=== PATIENT | female | born 1980 | race Asian ===

== ENCOUNTER 2021-06-16 14:17 | Inpatient (IN) | payer OTHER ==
[~2021-06-16] VITALS: Ht 157.5 cm; Wt 45.1 kg
[2021-06-16] MEDS ORDERED: ACETAMINOPHEN 325MG TABLET PO STA (15:29)
[2021-06-16 15:40] LABS: CLARITY URINE CLEAR (CLEAR); COLOR URINE YELLOW (YELLOW); KETONES URINE NEGATIVE (NEGATIVE); LEUKOCYTE ESTERASE URINE NEGATIVE (NEGATIVE); NITRITE URINE NEGATIVE (NEGATIVE); OCCULT BLOOD URINE 1+ (NEGATIVE); PH URINE 5.5 (4.5-8.0); PROTEIN URINE NEGATIVE (NEGATIVE); SPECIFIC GRAVITY URINE 1.013 (1.005-1.030); UROBILINOGEN URINE 0.2 E.U./dL (0.2-1.0)
[2021-06-16 15:44] LABS: BASOPHILS % 0.2 % (0.0-2.0); EOSINOPHILS % 0.6 % (0.0-5.0); HEMATOCRIT. 38.6 % (36.0-48.0); HEMOGLOBIN. 13.2 g/dL (12.0-16.0); LYMPHOCYTES % 11.7 % (20.0-50.0); MEAN CORPUSCULAR HEMOGLOBIN 29.4 pg (28.0-32.0); MEAN CORPUSCULAR VOLUME 85.8 fL (81.0-99.0); MEAN PLATELET VOLUME 8.1 fl (7.4-10.4); MONOCYTES % 6.6 % (2.0-8.0); NEUTROPHILS % 80.9 % (40.0-76.0); PLATELET 174 x1000/uL (130-400)
[2021-06-16 15:56] LABS: CHLORIDE 105 mEq/L (98-107)
[2021-06-16] MEDS ORDERED: ONDANSETRON HCL 4MG/2ML INJ IV STA (17:27)
[2021-06-16] MEDS ORDERED: MORPHINE SULFATE 4 MG/ML CPJ (NOT FOR IM USE) IV STA (17:27)
[2021-06-16] MEDS ORDERED: SODIUM CHLORIDE 0.9% 1,000 ML IV ONE (17:30)
[2021-06-16] MEDS ORDERED: PIPERACILLIN/TAZ 3.375G PREMIX 50 ML IV ONE (17:30)
[2021-06-17] VITALS: BP 101/72
[2021-06-17 01:13] VITALS: BP 101/72
[2021-06-17] MEDS ORDERED: DEXT 5%/0.9% NACL 1,000 ML IV SCH ×3 (02:30→06:00)
[2021-06-17] MEDS ORDERED: HYDROMORPHONE HCL/PF 2MG/ML CPJ IV PRN (02:30)
[2021-06-17] MEDS ORDERED: ONDANSETRON HCL 4MG/2ML INJ IV PRN (02:30)
[2021-06-17 04:00] VITALS: BP 97/58
[2021-06-17] MEDS: DEXT 5%/0.9% NACL 1,000 ML IV SCH ×3 (04:56→23:25)
[2021-06-17 06:33] LABS: BASOPHILS % 0.2 % (0.0-2.0); EOSINOPHILS % 1.3 % (0.0-5.0); HEMATOCRIT. 33.7 % (36.0-48.0); HEMOGLOBIN. 11.1 g/dL (12.0-16.0); LYMPHOCYTES % 14.2 % (20.0-50.0); MEAN CORPUSCULAR HEMOGLOBIN 28.3 pg (28.0-32.0); MEAN CORPUSCULAR VOLUME 86.3 fL (81.0-99.0); MEAN PLATELET VOLUME 8.4 fl (7.4-10.4); MONOCYTES % 7.1 % (2.0-8.0); NEUTROPHILS % 77.2 % (40.0-76.0); PLATELET 145 x1000/uL (130-400); RED BLOOD CELL COUNT 3.91 mill/uL (4.2-5.4); RED CELL DISTRIBUTION WIDTH 13.1 % (11.6-14.6)
[2021-06-17 07:11] LABS: CHLORIDE 108 mEq/L (98-107)
[2021-06-17 08:00] VITALS: BP 102/62
[2021-06-17] MEDS ORDERED: POTASSIUM CHLORIDE INJ 40 MEQ in DEXT 5% WATER 500 ML IV SCH (09:00)
[2021-06-17] MEDS: PANTOPRAZOLE SODIUM 40 MG/VIAL IV SCH (09:16)
[2021-06-17 12:04] VITALS: BP 102/69
[2021-06-17] MEDS: PIPERACILLIN/TAZOBACTAM 3.375 G in DEXTROSE 5% WATER 50 ML IV SCH ×2 (13:13→22:06)
[2021-06-17 16:20] VITALS: BP 114/71
[2021-06-17] MEDS ORDERED: POTASSIUM CHLORIDE 20MEQ TABLET SR PO NR (20:45)
[2021-06-17 21:41] LABS: HCG SCREEN NEGATIVE
[2021-06-18] VITALS: BP 113/68
[2021-06-18] MEDS: PIPERACILLIN/TAZOBACTAM 3.375 G in DEXTROSE 5% WATER 50 ML IV SCH (05:25)
[2021-06-18 08:00] VITALS: BP 107/56
[2021-06-18] MEDS: PANTOPRAZOLE SODIUM 40 MG/VIAL IV SCH (09:11)
[2021-06-18] MEDS: DEXT 5%/0.9% NACL 1,000 ML IV SCH (09:12)
[2021-06-18 10:25] VITALS: BP 107/56
[2021-06-18 10:33] VITALS: BP 107/56
[2021-06-21 13:07] LABS: SACCHAROMYCES CEREVISIAE IGG <20.0 Units (0.0-24.9); SACCHAROMYCES CEREVISIAE IGM <20.0 Units (0.0-24.9)
== END 2021-06-18 11:25 | disposition home or self-care (01) | DRG 816 ==
LOC: ER 14:38 → 6EST 20:56 → ENRESERV 22:01 → 6EST 23:16
PROVIDERS: ADMIT Hospitalist; ATTEND Hospitalist
DX: R59.0 Localized enlarged lymph nodes (principal); G43.909 Migraine, unspecified, not intractable, without status migrainosus; Z88.6 Allergy status to analgesic agent; Z79.899 Other long term (current) drug therapy
CPT/HCPCS: 36415; 74176; 76857; 80048; 80053; 81003; 84703; 85025; 86256; 86671; 87015; 87045; 87177; 87209; 87427; 87449; 87493; 89055; 99285; C9113; J2270; J2405; J2543; J3480; J7030; J7042; J7060